=== PATIENT | male | born 1985 | race Caucasian/White ===

== ENCOUNTER 2017-10-27 11:28 | Day surgery (SDC) | payer OTHER, MEDICAID ==
[~2017-10-27 11:28] MED LIST: CLINDAMYCIN 900 MG/50 ML D5W IVPB IVPB; DEXAMETHASONE 4 MG/ML 1 ML INJ; ONDANSETRON 4 MG INJ
[2017-10-27] MEDS ORDERED: ROCURONIUM 50 MG INJ (12:30)
[2017-10-27] MEDS ORDERED: NEOSTIGMINE 3 MG/3 ML SYRINGE (12:30)
[2017-10-27] MEDS ORDERED: PROPOFOL 20 ML (12:30)
[2017-10-27] MEDS ORDERED: LIDOCAINE 2% (SDV) 5 ML INJ (12:30)
[2017-10-27] MEDS ORDERED: MIDAZOLAM 1 MG/ML 2 ML INJ (12:30)
[2017-10-27] MEDS ORDERED: FENTAnyl 50 MCG/ML VIAL (12:51)
[2017-10-27] MEDS ORDERED: SUGAMMADEX SODIUM 200 MG/2 ML VIAL IV (12:59)
[2017-10-27] MEDS ORDERED: LIDOCAINE 1% (MPF) 30 ML INJ (13:25)
[2017-10-27] MEDS ORDERED: BUPIVACAINE 0.5% (SDV) 30 ML INJ (13:27)
[2017-10-27] MEDS ORDERED: FENTAnyl 50 MCG/ML VIAL IV ×2 (13:30)
[2017-10-27] MEDS ORDERED: LABETALOL HCL 20MG INJ IV (13:30)
[2017-10-27] MEDS ORDERED: MIDAZOLAM 1 MG/ML 2 ML INJ IV (13:30)
[2017-10-27] MEDS ORDERED: OXYCODONE/ACETAMINOPHEN (5/325) TAB PO ×2 (13:30)
[2017-10-27] MEDS ORDERED: ONDANSETRON 4 MG INJ IV (13:30)
[2017-10-27] MEDS ORDERED: morphine (1 MG/ML) 10ML SYRINGE IV ×3 (13:30)
[2017-10-27] MEDS ORDERED: hydrALAzine 20 MG INJ IV (13:30)
[2017-10-27] MEDS ORDERED: HYDROmorphONE 1 MG/5 ML IV SYRINGE IV (13:30)
[2017-10-27] MEDS ORDERED: MEPERIDINE 25 MG INJ IV (13:30)
[2017-10-27] MEDS ORDERED: ATROPINE 1 MG/10 ML SYRINGE IV (13:30)
[2017-10-27] MEDS ORDERED: DIPHENHYDRAMINE 50 MG INJ IV (13:30)
[2017-10-27] MEDS ORDERED: EPHEDrine SULFATE 50 MG/5 ML SYG IV (13:30)
[2017-10-27] MEDS: BUPIVACAINE 0.5% (SDV) 30 ML INJ (14:10)
[2017-10-27] MEDS ORDERED: FLUMAZENIL 0.5 MG INJ (14:45)
[2017-10-27] MEDS: HYDROmorphONE 1 MG/5 ML IV SYRINGE IV ×2 (15:02→15:09)
== END 2017-10-27 16:23 | disposition home or self-care (01) ==
LOC: SDS 11:28
DX: G56.03 Carpal tunnel syndrome, bilateral upper limbs (principal)
CPT/HCPCS: 64721